=== PATIENT | male | born 1990 | race Caucasian/White ===

== ENCOUNTER 2021-05-23 14:46 | Emergency (ER) | payer BC, SELFPAY ==
[2021-05-23 14:58] VITALS: PULSE 71; RESP 19; TEMP 36.4; O2SAT 99; BMI 35.2
--- NOTE | 2021-05-23 15:09 | CTR_ITS ---
PROCEDURE INFORMATION: Exam: CT Abdomen And Pelvis With Contrast Exam date and time: 05/23/2021 3:09 PM Age: 30 years old Clinical indication: Abdominal pain; Localized; Prior surgery; Surgery type: Gastric sleeve. ; Patient HX: Left sided abd pain. ; Additional info: Recent bariatric sleeve, sudden onset left flank pain TECHNIQUE: Imaging protocol: Computed tomography of the abdomen and pelvis with contrast. Radiation optimization: All CT scans at this facility use at least one of these dose optimization techniques: automated exposure control; mA and/or kV adjustment per patient size (includes targeted exams where dose is matched to clinical indication); or iterative reconstruction. Contrast material: OMNI 300; Contrast volume: 95 ml; Contrast route: INTRAVENOUS (IV); COMPARISON: No relevant prior studies available. RADIATION DOSE METRICS: Total DLP (mGy-cm): 1839.81 FINDINGS: Liver: The liver is mildly enlarged. No parenchymal lesion is visualized. Gallbladder and bile ducts: Normal. No calcified stones. No ductal dilation. Pancreas: Normal. No ductal dilation. Spleen: Normal. No splenomegaly. Adrenal glands: Normal. No mass. Kidneys and ureters: Tiny renal stones are seen in both kidneys. A 6 mm renal stone is present in the proximal left ureter just distal to the UPJ. Mild left hydronephrosis is noted. Stomach and bowel: Surgical changes of sleeve gastrectomy are appreciated. No intestinal obstruction. Appendix: The appendix is normal. Intraperitoneal space: Unremarkable. No free air. No significant fluid collection. Vasculature: Unremarkable. No abdominal aortic aneurysm. Lymph nodes: Several mildly enlarged lymph nodes are present in the rosie hepatis and portacaval region, which are nonspecific. Urinary bladder: Unremarkable as visualized. Reproductive: Unremarkable as visualized. Bones/joints: Unremarkable. No acute fracture. Soft tissues: Unremarkable. CT/CT abdomen pelvis w con* [id number] IMPRESSION: 1. Proximal left ureter 6 mm renal stone and mild left hydronephrosis. 2. Mild hepatomegaly Radiation Dose CTDIVOL = (mGy): DLP = 1839.81 (mGy-cm)
[2021-05-23 15:18] VITALS: RESP 16
[2021-05-23] MEDS: morphine 4 mg/mL SDV 1 mL IVP (15:18)
[2021-05-23] MEDS: ondansetron 2 mg/ML SDV 2 mL 4 MG IVP (15:18)
[2021-05-23] MEDS: sodium chloride 0.9% 1,000 ML 999 ML IV (15:19)
[2021-05-23 15:23] LABS: Basophils # 0.1 10^3/uL (0.0-0.1); Basophils % 0.4 %; Eosinophils # 0.1 10^3/uL (0.0-0.8); Eosinophils % 0.7 %; Hematocrit 43.7 % (42.0-52.0); Hemoglobin 14.9 g/dL (11.7-16.6); Lymphocytes # 1.3 10^3/uL (0.8-4.8); Lymphocytes % 11.3 %; Mean Corpuscular HGB Conc 34.1 g/dL (30.0-36.0); Mean Corpuscular Hemoglobin 28.7 pg (28.0-34.0); Mean Corpuscular Volume 84.2 fl (80-94); Mean Platelet Volume 12.4 fL (7.4-10.4); Monocytes # 0.5 10^3/uL (0.2-0.9); Monocytes % 4.4 %; Neutrophils # 9.35 10^3/uL (1.8-7.7); Neutrophils % 82.8 %; Nucleated Red Blood Cells % 0 %; Platelet Count 179 10^3/cmm (130-400); Red Blood Count 5.19 10^6/uL (4.1-5.3); Red Cell Distribution Width 12.8 % (12.1-15.1); White Blood Count 11.3 10^3/uL (4.0-10.0)
[2021-05-23] MEDS: iohexol 300 mg/mL 100 mL Btl IV (15:26)
[2021-05-23 15:42] LABS: Alanine Aminotransferase 80 U/L (0-41); Albumin Level 4.7 g/dL (3.5-5.2); Alkaline Phosphatase 90 IU/L (40-130); Anion Gap 17.8 (5-19); Aspartate Amino Transferase 55 U/L (0-40); Blood Urea Nitrogen 7 mg/dL (6-20); Calcium 9.5 mg/dL (8.5-10.5); Carbon Dioxide 25 mmol/L (22-29); Chloride 103 mmol/L (98-107); Globulin 2.8 g/dL (1.3-4.6); Glomerular Filtration Rate 88.3 mL/min (90-130); Glucose 160 mg/dL (65-115); Lipase 26 U/L (13-60); Osmolality Calculated 295 mOsm/kg (285-295); Potassium 3.8 mmol/L (3.5-5.1); Sodium 142 mmol/L (136-145); Total Bilirubin 0.8 mg/dL (0.15-1.2); Total Protein 7.5 g/dL (6.6-8.7)
--- NOTE | 2021-05-23 15:45 | W.ED.MALEGU ---
Documented by User: YURIY Mejia 05/23/21 15:47 HPI - Male Genitourinary General: Chief complaint: Urogenital-Male Stated complaint: BACK PAIN/SPASMS RADIATING TO L SIDE Time Seen by Provider: 05/23/21 14:57 History of Present Illness: HPI Narrative: Patient complains about sudden onset left flank pain x3 hours ago. Patient said he was sitting on still had a bowel movement bear down and felt pain his left flank now radiates to his left abdomen. Did have vomiting x1 and is been diaphoretic. Recently had bariatric sleeve surgery a month and a half ago. Has any other illness. Only takes vitamins. Has lost 55 pounds in last month MD Complaint: other (Left flank pain) Onset (ago): hour(s) Duration: constant Location: left flank Radiation: abdomen Severity: moderate Severity scale (1-10): 5 Quality: sharp Relieving factors: none Exacerbating factors: none Context: recent surgery Associated symptoms: Reports no associated symptoms and vomiting (X1); Deny nausea Review of Systems Const: Denies: fever(s), chills or body aches Eyes: Denies: change in vision or blurry vision ENMT: Denies: throat pain or nasal congestion Card: Denies: chest pain or dyspnea on exertion Resp: Denies: dyspnea, productive cough or non-productive cough GI: Reports: vomiting (X1); Denies: abdominal pain or nausea : Reports: flank pain; Denies: difficulty urinating Musc: Denies: extremity pain Skin/Breast: Denies: rash Neuro: Denies: headache(s) Psych: Denies: anxiety or depression Alexis/Lymph: Denies: easy bruising Physical Exam Const: COMMON NORMALS: no acute distress, average body habitus and patient oriented x3 HENMT: COMMON NORMALS: normocephalic HEAD & SCALP: normal to inspection and normocephalic FACE & SINUS: normal facial exam Eye: COMMON NORMALS: conjunctivae normal GENERAL EYE: appearance normal, both eyes and all related structures CONJUNCTIVA: Yes conjunctivae normal Neck/C-Spine: COMMON NORMALS: no JVD Chest: COMMONS NORMALS: normal inspection of the chest Resp: COMMON NORMALS: normal respiratory effort and clear to auscultation bilaterally AUSCULTATION: clear to auscultation bilaterally Cardio: COMMON NORMALS: no JVD, regular rate and regular rhythm RATE: regular rate RHYTHM: regular rhythm GI: COMMON NORMALS: Normal to inspection, nondistended, normoactive bowel sounds present : BLADDER/KIDNEY EXAM: Yes CVA tenderness on the left Back/Pelvis: GENERAL BACK: Yes CVA tenderness Extremity: COMMON NORMALS: normal to inspection and full ROM Neuro: COMMON NORMALS: patient oriented x3 Skin: NARRATIVE SKIN EXAM: Diaphoretic Course Vital Signs: Vital signs: Vital Signs Temperature 97.5 F L 05/23/21 14:58 Pulse Rate 71 05/23/21 14:58 Respiratory Rate 18 05/23/21 16:02 Pulse Oximetry 99 05/23/21 16:02 MDM - Male Lab Data: Labs: Lab Results 05/23/21 05/23/21 05/23/21 Range/Units 15:10 15:10 17:13 WBC 11.3 H (4.0-10.0) 10^3/ uL RBC 5.19 (4.1-5.3) 10^6/u L Hgb 14.9 (11.7-16.6) g/dL Hct 43.7 (42.0-52.0) % MCV 84.2 (80-94) fl MCH 28.7 (28.0-34.0) pg MCHC 34.1 (30.0-36.0) g/dL RDW 12.8 (12.1-15.1) % Plt Count 179 (130-400) 10^3/c mm MPV 12.4 H (7.4-10.4) fL Neut % (Auto) 82.8 % Lymph % (Auto) 11.3 % [place] % (Auto) 4.4 % Eos % (Auto) 0.7 % Baso % (Auto) 0.4 % Neut # (Auto) 9.35 H (1.8-7.7) 10^3/u L Lymph # (Auto) 1.3 (0.8-4.8) 10^3/u L [place] # (Auto) 0.5 (0.2-0.9) 10^3/u L Eos # (Auto) 0.1 (0.0-0.8) 10^3/u L Baso # (Auto) 0.1 (0.0-0.1) 10^3/u L Nucleated RBC % (a uto) 0 % Nucleated RBCs # 0.0 /100WBC Sodium 142 (136-145) mmol/L Potassium 3.8 (3.5-5.1) mmol/L Chloride 103 (98-107) mmol/L Carbon Dioxide 25 (22-29) mmol/L Anion Gap 17.8 (5-19) BUN 7 (6-20) mg/dL Creatinine 1.0 (0.7-1.2) mg/dL GFR Calculation 88.3 L (90-130) mL/min Glucose 160 H (65-115) mg/dL Calculated Osmolal ity 295 (285-295) mOsm/k g Calcium 9.5 (8.5-10.5) mg/dL Total Bilirubin 0.8 (0.15-1.2) mg/dL AST 55 H (0-40) U/L ALT 80 H (0-41) U/L Alkaline Phosphata se 90 (40-130) IU/L Total Protein 7.5 (6.6-8.7) g/dL Albumin 4.7 (3.5-5.2) g/dL Globulin 2.8 (1.3-4.6) g/dL Lipase 26 (13-60) U/L Urine Color Straw (Yellow) Urine Appearance Clear (CLEAR) Urine pH 5 (5-7) Ur Specific Gravit y 1.010 (1.005-1.030) Urine Protein Trace (Negative) Urine Glucose (UA) Norm (Normal) Urine Ketones 2+ H (Negative) Urine Blood 3+ H (Negative) Urine Nitrate Negative (Negative) Urine Bilirubin 1+ H (Negative) Urine Urobilinogen 1 H (Negative) mg/dL Ur Leukocyte Maria R ase Negative (Negative) Urine RBC 15-25 H (0-2) /hpf Urine WBC None (0-5) /hpf Ur Squamous Epith Cells None (0-5) /hpf Amorphous Sediment Not Reportable Urine Bacteria Trace (NONE) /hpf Urine Mucus 2+ /hpf Discharge Plan Discharge Patient Disposition: Home Clinical Impression: Left ureteral stone Condition: Stable Prescriptions: New Flomax 0.4 mg capsule 0.4 mg PO DAILY Qty: 7 RF: 0 hydrocodone-acetaminophen 5-325 mg tablet 1 tab PO TID PRN (Reason: pain) Qty: 14 RF: 0 Zofran 4 mg tablet 4 mg PO Q8H 3 Days Qty: 9 RF: 0 Discharge Orders: Discharge ED (Routine); Ordered 05/23/21 Ordered By: James Huitron Discharge Diet: Advance as tolerated Discharge Activity: Increase activity as tolerated Patient Instructions: Kidney Stones (ED) Activity Restrictions/Additional Instructions: Follow-up with medical provider as directed. Take medications as prescribed. Return to the ER or your medical provider if condition worsens. Please read and understand discharge instructions. If any questions ask please. Hospital should be contact you with an a follow-up appointment with Dr. Richard. Make sure you drink plenty of fluids. Stand Alone Forms: Work/School Release Coding Level of Care Code ED Skin Care Specialist for Chg Fwd Exam Comprehensive Documented by User: YURIY Courtney 05/23/21 18:17 HPI - Male Genitourinary General: Chief complaint: Urogenital-Male Stated complaint: BACK PAIN/SPASMS RADIATING TO L SIDE Time Seen by Provider: 05/23/21 14:57 Course ED course: 170, accepted patient from Willard Huitron, family nurse practitioner, patient has been given medication for pain and we are awaiting urine results. Patient is resting well. No acute distress is noted. Patient has a renal calculi. 1814, urinalysis is complete no signs of infection was noted. Vital Signs: Vital signs: Vital Signs Temperature 97.5 F L 05/23/21 14:58 Pulse Rate 71 05/23/21 14:58 Respiratory Rate 18 05/23/21 16:02 Pulse Oximetry 99 05/23/21 16:02 MDM - Male MDM Narrative: Medical decision making narrative: I received this patient from James Huitron, nurse practitioner, he was awaiting a urine sample to rule out infection secondary to his renal calculi. CT scan confirmed renal calculi that is approximately 6 mm in left ureter. Patient will follow up with urology. Medications for pain and discomfort was prescribed. Patient can return as needed for worsening symptoms or high fever. Lab Data: Labs: Lab Results 05/23/21 05/23/21 05/23/21 Range/Units 15:10 15:10 17:13 WBC 11.3 H (4.0-10.0) 10^3/ uL RBC 5.19 (4.1-5.3) 10^6/u L Hgb 14.9 (11.7-16.6) g/dL Hct 43.7 (42.0-52.0) % MCV 84.2 (80-94) fl MCH 28.7 (28.0-34.0) pg MCHC 34.1 (30.0-36.0) g/dL RDW 12.8 (12.1-15.1) % Plt Count 179 (130-400) 10^3/c mm MPV 12.4 H (7.4-10.4) fL Neut % (Auto) 82.8 % Lymph % (Auto) 11.3 % [place] % (Auto) 4.4 % Eos % (Auto) 0.7 % Baso % (Auto) 0.4 % Neut # (Auto) 9.35 H (1.8-7.7) 10^3/u L Lymph # (Auto) 1.3 (0.8-4.8) 10^3/u L [place] # (Auto) 0.5 (0.2-0.9) 10^3/u L Eos # (Auto) 0.1 (0.0-0.8) 10^3/u L Baso # (Auto) 0.1 (0.0-0.1) 10^3/u L Nucleated RBC % (a uto) 0 % Nucleated RBCs # 0.0 /100WBC Sodium 142 (136-145) mmol/L Potassium 3.8 (3.5-5.1) mmol/L Chloride 103 (98-107) mmol/L Carbon Dioxide 25 (22-29) mmol/L Anion Gap 17.8 (5-19) BUN 7 (6-20) mg/dL Creatinine 1.0 (0.7-1.2) mg/dL GFR Calculation 88.3 L (90-130) mL/min Glucose 160 H (65-115) mg/dL Calculated Osmolal ity 295 (285-295) mOsm/k g Calcium 9.5 (8.5-10.5) mg/dL Total Bilirubin 0.8 (0.15-1.2) mg/dL AST 55 H (0-40) U/L ALT 80 H (0-41) U/L Alkaline Phosphata se 90 (40-130) IU/L Total Protein 7.5 (6.6-8.7) g/dL Albumin 4.7 (3.5-5.2) g/dL Globulin 2.8 (1.3-4.6) g/dL Lipase 26 (13-60) U/L Urine Color Straw (Yellow) Urine Appearance Clear (CLEAR) Urine pH 5 (5-7) Ur Specific Gravit y 1.010 (1.005-1.030) Urine Protein Trace (Negative) Urine Glucose (UA) Norm (Normal) Urine Ketones 2+ H (Negative) Urine Blood 3+ H (Negative) Urine Nitrate Negative (Negative) Urine Bilirubin 1+ H (Negative) Urine Urobilinogen 1 H (Negative) mg/dL Ur Leukocyte Maria R ase Negative (Negative) Urine RBC 15-25 H (0-2) /hpf Urine WBC None (0-5) /hpf Ur Squamous Epith Cells None (0-5) /hpf Amorphous Sediment Not Reportable Urine Bacteria Trace (NONE) /hpf Urine Mucus 2+ /hpf Discharge Plan Discharge Patient Disposition: Home Clinical Impression: Left ureteral stone Condition: Stable Prescriptions: New Flomax 0.4 mg capsule 0.4 mg PO DAILY Qty: 7 RF: 0 hydrocodone-acetaminophen 5-325 mg tablet 1 tab PO TID PRN (Reason: pain) Qty: 14 RF: 0 Zofran 4 mg tablet 4 mg PO Q8H 3 Days Qty: 9 RF: 0 Discharge Orders: Discharge ED (Routine); Ordered 05/23/21 Ordered By: James Huitron Discharge Diet: Advance as tolerated Discharge Activity: Increase activity as tolerated Patient Instructions: Kidney Stones (ED) Activity Restrictions/Additional Instructions: Follow-up with medical provider as directed. Take medications as prescribed. Return to the ER or your medical provider if condition worsens. Please read and understand discharge instructions. If any questions ask please. Hospital should be contact you with an a follow-up appointment with Dr. Richard. Make sure you drink plenty of fluids. Stand Alone Forms: Work/School Release Coding Level of Care Code ED Skin Care Specialist for Chg Fwd Exam Comprehensive
[2021-05-23 16:02] VITALS: RESP 18; O2SAT 99
[2021-05-23] MEDS: HYDROmorphone 1 mg/mL INJ 1 mL IVP (16:02)
[2021-05-23] MEDS: ketorolac 30 mg/mL INJ IVP (17:42)
[2021-05-23 18:07] LABS: Add Urine Microscopic? YES; Bilirubin Urine 1+ (Negative); Blood Urine 3+ (Negative); Glucose Urine UA Norm (Normal); Ketones Urine 2+ (Negative); Leukocyte Esterase Urine Negative (Negative); Nitrate Urine Negative (Negative); Protein Urine Trace (Negative); Urine Appearance Clear (CLEAR); Urine Color Straw (Yellow); Urobilinogen Urine 1 mg/dL (Negative); pH Urine 5 (5-7)
[2021-05-23 18:08] LABS: Add Urine Culture? Yes; Bacteria Urine TRACE /hpf; Mucus Urine 2+ /hpf; RBC Urine 15-25 /hpf (0-2)
[2021-05-23] MEDS: HYDROcodone-acetaminophen 7.5-325 mg Tablet 2 TAB PO (18:42)
[2021-05-23 18:45] VITALS: BP 117/59; PULSE 91; RESP 16; O2SAT 95
[2021-05-23] MEDS: ondansetron 4 MG Tablet PO (18:50)
--- NOTE | 2021-05-24 10:57 | DCPLANNER ---
manager lpn had message to schedule a follow up appointment for patient with Dr. Richard. manager lpn called the office of Dr. Richard, spoke with Benito, gave clinic patients information. manager lpn was told that patients information would be printed and reviewed. Clinic will call patient with appointment information.
--- NOTE | 2021-05-25 08:04 | DCPLANNER ---
Patient has a follow up appointment scheduled for Tuesday, May 25, 2021 at 3:[address] Richard. Clinic will call patient with appointment information.
--- NOTE | 2021-05-26 13:25 | DCPLANNER ---
Patient had a follow up appointment scheduled 05.25.[address] Richard - patient did attend appointment.
== END 2021-05-23 19:01 | disposition home or self-care (01) ==
PROVIDERS: Nurse Practitioner Family; Emergency Provider Nurse Practitioner Family
DX: N13.2 Hydronephrosis with renal and ureteral calculous obstruction (principal); Z98.84 Bariatric surgery status
CPT/HCPCS: 74177; 80053; 81001; 83690; 85025; 87077; 87086; 87186; 96361; 96374; 96375; 96376; 99284; J1170; J1885; J2270; J2405; J7030; Q0162; Q9967

== ENCOUNTER 2021-05-25 13:56 | Outpatient (CLI) | payer BC, SELFPAY ==
--- NOTE | 2021-05-25 14:01 | XRR_ITS ---
PROCEDURE INFORMATION: Exam: XR Abdomen Exam date and time: 05/25/2021 2:01 PM Age: 30 years old Clinical indication: Pain and condition or disease; Kidney or ureter condition; Calculus (stone) in kidney and calculus (stone) in ureter; Other: Left sided back; Additional info: Ureteral stone TECHNIQUE: Imaging protocol: XR of the abdomen. Views: Frontal supine view of the abdomen. 1 View. COMPARISON: CT abdomen pelvis w con* [id number] 05/23/2021 3:23 PM FINDINGS: Gastrointestinal tract: Normal. No bowel dilation. Bones/joints: 6.4 mm calculus in the region of the left ureter at the level of the L4 transverse process. XR/XR KUB [id number] IMPRESSION: 6.4 mm calculus in the region of the left ureter at the level of the L4 transverse process.
== END 2021-05-25 13:57 | disposition home or self-care (01) ==
PROVIDERS: PCP Urology; Visit Provider Urology
DX: N20.1 Calculus of ureter (principal)
CPT/HCPCS: 74018; 81003

== ENCOUNTER 2021-05-27 07:59 | Outpatient (CLI) | payer BC, SELFPAY ==
--- NOTE | 2021-05-27 15:12 | XR_ITS ---
WS: [id number] KUB, AP view, 05/27/2021 Clinical Data: URETERAL STONE Comparison: KUB, 05/25/2021. Findings: No abnormal intraabdominal masses are seen. There is no dilatated small bowel or evidence of obstruct ion. There is a 0.7 cm calculus to the left of the L4-L5 disc level consistent with a ureteral calculus. N o calcifications are overlying the kidneys. There are no abnormal pelvic calcifications. XR/XR KUB [id number] Impression: Probable left mid ureteral calculus unchanged.
== END 2021-05-27 08:00 | disposition home or self-care (01) ==
PROVIDERS: Visit Provider Urology
DX: N20.1 Calculus of ureter (principal)
CPT/HCPCS: 74018; 81003

== ENCOUNTER 2021-05-27 11:14 | Day surgery (SDC) | payer BC, SELFPAY ==
[2021-05-27] VITALS (9 sets, daily range): BP systolic 144–174; BP diastolic 84–112; PULSE 62–107; RESP 14–22; TEMP 36.8–36.9; O2SAT 93–97; BMI 35.2
--- NOTE | 2021-05-27 | SCC_ITS ---
Procedure Done: 1. Cystoscopy, left retrograde ureteropyelogram 2. Left ureteroscopy, dilation of distal ureteral stricture, laser, stent 49.7 seconds of fluoroscopic guidance, for a cumulative dose of 18.70 mGy, was provided to Dr. Richard by the radiology department. C-arm images of the abdomen were saved for the patient's permanent record. [facility]
--- NOTE | 2021-05-27 11:18 | SC_ITS ---
WS: [id number] C-arm fluoroscopy for left ureteral stent placement, 05/27/2021 Clinical Data: Left ureteroscopy Comparison: None. Findings: A left retrograde urogram was performed. Then a left ureteral stent was inserted by Dr. Richard.. SC/C-arm [place] for Urology Impression: Insertion of left ureteral stent.
--- NOTE | 2021-05-27 11:32 | ANES.PREANE2 ---
Pre-Anesthetic Assessment Pre-Anesthetic Assessment: Height/Weight: Height 1.78 m Preop Diagnosis: Refractory renal colic secondary to left ureteral stone Proposed Procedure: Operation Date: 05/27/21 12:05 Proposed Procedures p Laser Lithotripsy [id number] Mod 26 N23 N20.1(Left) - Oscar Richard MD p Cystoscopy(Left) - Oscar Richard MD s Retrograde Pyelogram(Left) - Oscar Richard MD s Ureteroscopy(Left) - Oscar Richard MD s Ureteral Stent Placement(Left) - Oscar Richard MD Familial anesthetic complications: None Was Beta Sabina taken within 24 hours: N/A Was Clonidine taken within 24 hours: N/A Last intake: > 8 hrs Social: Social History: No alcohol and No tobacco Exam: Pre-Anes Outpt Exam: alert, oriented x 3, clear to auscultation bilaterally and regular rate & rhythm Airway: Cervical ROM: WNL MP: 3 Dentition: Full GI: Comments: gastric bypass 5 weeks ago Anesthetic Plan: ASA status: 2 Anesthesia: General Risk of > 500 ml blood loss (7ml/kg in children): No PFSH Anesthesia PFSH: Family History Father Healthy adult Mother Healthy adult Social History Alcohol intake: never Marital status: Life Partner Current occupational status: employed History of recent travel: No Data Anesthesia Cardiac Studies: No Data to Display
[2021-05-27] MEDS: sodium chloride 0.9% 1,000 ML 30 ML IV (11:40)
--- NOTE | 2021-05-27 12:08 | W.PM.OPSUD ---
Surgery/Procedure H&P Update DATE OF PROCEDURE: May 27, 2021 DATE H&P PERFORMED: 05/27/21 H&P UPDATE INFORMATION: I have reviewed H&P completed within last 30 days, I have examined patient prior to procedure, No changes to prior documentation and H&P is in [facility] EMR on date indicated PREOP DIAGNOSIS: Refractory renal colic secondary to left ureteral stone PLANNED PROCEDURE: Operation Date: 05/27/21 12:05 Proposed Procedures p Laser Lithotripsy [id number] Mod 26 N23 N20.1(Left) - Oscar Richard MD p Cystoscopy(Left) - Oscar Richard MD s Retrograde Pyelogram(Left) - Oscar Richard MD s Ureteroscopy(Left) - Oscar Richard MD s Ureteral Stent Placement(Left) - Oscar Richard MD
--- NOTE | 2021-05-27 12:09 | P.OP_ITS ---
Operative Report Date of procedure: May 27, 2021 Pre-op Diagnosis: Refractory renal colic secondary to left ureteral stone Post-op diagnosis: same Procedure Done: 1. Cystoscopy, left retrograde ureteropyelogram 2. Left ureteroscopy, dilation of distal ureteral stricture, laser, stent Surgeon: Jose Manuel Anesthesia: General Estimated blood loss: Minimal Urine output: Not measured Complications: None Findings: 1. Stone in the expected position 2. Fragment with laser lithotripsy without difficulty and fragments 3. 7 x 28 cm double-pigtail stent left indwelling without string Condition: stable Disposition: PACU Brief History: Robert is a very pleasant changes on CT scan as well as symptom picture. No evidence of infection. He wanted to see if he could try to pass a stone but was unable to control his pain adequately for any length of time and because of that abandon the conservative approach today when he was seen in clinic and requested intervention. We reviewed ESWL versus endoscopy and he elected endoscopy over ESWL. He is about 5 weeks status post bariatric surgery and we felt it would make more sense to avoid trauma to that area with ESWL Procedure: After routine preoperative evaluation exam 05/27/2021 where general anesthesia was administered without difficulty after appropriate timeout was performed, SCDs confirmed to be functioning, preoperative antibiotics administered, beta-callie protocol confirmed. Prepped and draped in usual sterile fashion in dorsolithotomy position paying careful attention to avoiding pressure points. 21 English cystoscope with 30 degree lens was introduced into the urethra meatus and advanced into the bladder under videoscopy .The bladder was systematically examined and found to be within normal limits. An 8 English cone-tip catheter was intubated into the left ureteral orifice for left retrograde ureteropyelogram: There is a narrowed area approximately 1.5 cm distal to the ureteral orifice, the ureter above that was not dilated until the filling defect was identified over the sacrum consistent with a stone seen previously at L4 level. The ureter proximal to that was dilated. The stone appeared to be free-floating. Flexible tip guidewire was then advanced up the left ureter bypassing the stone 7 English offset semirigid ureteroscope was advanced next to the wire but could only be advanced about 1.5 cm where it encountered the narrowed area. It could not be manipulated beyond that point. A 15 English 4 cm balloon was then advanced over the guidewire through the cystoscope and the distal ureter including the stricture was dilated. It took 22 justyn of pressure in order to open the stricture and even then it was not completely opened. The balloon was removed. A 2nd guidewire was then passed. The first wire had b een secured to the drapes as a safety wire. The offset semirigid ureteroscope was then advanced over the working wire and was able to be manipulated to the still mildly narrowed area of the stricture. The scope was passed up to the stone and the stone was then fragmented with a 365 ?m thulium superpulse laser fiber into very very small fragments which were flushed from the ureter as well as removed with a parachute basket. Final inspection revealed no additional fragments remaining. The cystoscope was then backloaded over the safety wire and a 7 English by 28 cm double-pigtail stent was advanced over the guidewire through the cystoscope into appropriate position as confirmed via fluoroscopy cystoscopy. There remained a lot of fragments in the bladder and these were flushed free from the bladder and insurance service representative samples were sent to pathology for analysis. He tolerated the procedure well without complications and was awakened in the operating room and returned to the recovery room in stable condition. PLANS: 1. Anticipate discharge from outpatient surgery today 2. Because of the distal ureteral stricture which required high-pressure dilation the stent needs to remain in at least 2 weeks. 3. We will plan on seeing him back in 2 weeks reassess with a KUB. And review option of removing the stent or waiting longer for further healing before removal.
[2021-05-27] MEDS: levofloxacin-dextrose 5 % 500 MG/100 ML PREMIX 100 MG IV (12:28)
[2021-05-27 12:43] LABS: Blood Urea Nitrogen 11 mg/dL (6-20); Calcium 9.3 mg/dL (8.5-10.5); Carbon Dioxide 23 mmol/L (22-29); Chloride 102 mmol/L (98-107); Glomerular Filtration Rate 79.1 mL/min (90-130); Glucose 94 mg/dL (65-115); Osmolality Calculated 291 mOsm/kg (285-295); Sodium 141 mmol/L (136-145)
[2021-05-27 12:49] LABS: Anion Gap 19.9 (5-19); Potassium 3.9 mmol/L (3.5-5.1)
--- NOTE | 2021-05-27 13:34 | P.PCN_ITS ---
PACU note PACU note: VSS, Good respiratory effort, report to SAUSAGE WRAPPER Post-Anesthesia Exam: awake
--- NOTE | 2021-05-27 13:34 | PM.PACU ---
PACU note PACU note: VSS, Good respiratory effort, report to [employer] Post-Anesthesia Exam: awake
[2021-05-27] MEDS: labetalol 5 mg/mL SDV 20mL IVP ×2 (13:47→13:54)
--- NOTE | 2021-05-27 13:58 | SUR.PHASEI ---
1340 PT AWAKE ALERT DENIES PAIN AND NAUSEA , PT SHIVERING WARM BLANKETS X 3 TO PT PT BP ELEVATED VERBAL ORDERS FOR LABETOLOL PER PHASE [address] Leslie JUDGE./SHELLY APPLICATION RELEASE MANAGER 1400 SEE MEDS GIVEN ORDERED PT ATTEMPTING TO USE URINAL.
--- NOTE | 2021-05-27 19:08 | ANE.PACU2 ---
Inpatient post-anesthesia follow up: Airway intact: Yes Vital signs: Temperature 98.5 F Pulse Rate 62 Respiratory Rate 18 Blood Pressure 144/84 Pulse Oximetry 97 Oxygen Delivery Me thod Room Air Oxygen Flow Rate 8 Fraction of Inspir ed Oxygen Hydration adequate: Yes Nausea and vomiting: No Pain level: 2 Mental status: Baseline
[2021-06-07 03:07] LABS: Stone Source LEFT URETER
== END 2021-05-27 14:50 | disposition home or self-care (01) ==
PROVIDERS: Visit Provider Urology
PROC: (CPT 52356; principal; 2021-05-27 12:00)
PROC: 0TJB8ZZ Inspection of Bladder, Via Natural or Artificial Opening Endoscopic (ICD-10-PCS; CPT 52000; 2021-05-27 12:00)
PROC: (CPT 74420; 2021-05-27 12:00)
PROC: 0TJ98ZZ Inspection of Ureter, Via Natural or Artificial Opening Endoscopic (ICD-10-PCS; CPT 52351; 2021-05-27 12:00)
PROC: (CPT 50605; 2021-05-27 12:00)
DX: N23 Unspecified renal colic (principal); N20.1 Calculus of ureter; Z98.84 Bariatric surgery status
CPT/HCPCS: 52356; 36415; 76000; 80048; 82365; 88300; C2625; J1956; J3490; J7030

== ENCOUNTER 2021-06-11 09:04 | Outpatient (CLI) | payer BC, SELFPAY ==
--- NOTE | 2021-06-11 09:00 | XR_ITS ---
WS: [id number] XR KUB [id number] REASON FOR EXAM: RENAL COLIC FINDINGS: Left ureteral stent in place in proper position. The left ureteral calculus demonstrated at the L4-L5 level on 05/27/2021 is no longer identified along the course of the ureteral stent or overlying the bladder. No other significant finding noted. XR/XR KUB [id number] IMPRESSION: Left ureteral stent. Previous left ureteral calculus no longer identifiable.
== END 2021-06-11 09:05 | disposition home or self-care (01) ==
LOC: RAD 09:05
PROVIDERS: Visit Provider Urology
DX: N23 Unspecified renal colic (principal); Z96.0 Presence of urogenital implants
CPT/HCPCS: 74018; 81003

== ENCOUNTER → 2021-06-25 14:09 | Outpatient (BNVA) | payer BC, SELFPAY | PROVIDERS: Visit Provider Urology | DX: N13.5 Crossing vessel and stricture of ureter without hydronephrosis (principal); N23 Unspecified renal colic; Z96.0 Presence of urogenital implants | CPT/HCPCS: 81003 ==